=== PATIENT | female | born 1990 | race Two or more races ===

== ENCOUNTER 2019-01-20 05:00 | Inpatient (IN) | payer MEDICAID ==
[~2019-01-20] VITALS: Ht 165.1 cm; Wt 65.0 kg
[2019-01-20 06:38] LABS: BASOPHILS % 0.3 % (0.0-2.0); EOSINOPHILS % 1.5 % (0.0-5.0); HEMOGLOBIN. 12.2 g/dL (12.0-16.0); LYMPHOCYTES % 40.3 % (20.0-50.0); MEAN CORPUSCULAR HEMOGLOBIN 29.7 pg (28.0-32.0); MEAN CORPUSCULAR VOLUME 87.4 fL (81.0-99.0); MONOCYTES % 6.1 % (2.0-8.0); NEUTROPHILS % 51.8 % (40.0-76.0); PLATELET 331 x1000/uL (130-400); RED BLOOD CELL COUNT 4.12 mill/uL (4.2-5.4); RED CELL DISTRIBUTION WIDTH 13.5 % (11.6-14.6)
[2019-01-20 06:39] LABS: CHLORIDE 105 mEq/L (98-107)
[2019-01-20 06:43] LABS: HCG SCREEN NEGATIVE
[2019-01-20 06:44] LABS: ETHANOL BLOOD < 10 mg/dL
[2019-01-20 06:46] LABS: LDL CHOLESTEROL 83 mg/dL (5-100)
[2019-01-20 07:42] LABS: CLARITY URINE CLEAR (CLEAR); COLOR URINE YELLOW (YELLOW); KETONES URINE NEGATIVE (NEGATIVE); LEUKOCYTE ESTERASE URINE NEGATIVE (NEGATIVE); NITRITE URINE NEGATIVE (NEGATIVE); OCCULT BLOOD URINE 1+ (NEGATIVE); PROTEIN URINE NEGATIVE (NEGATIVE); SPECIFIC GRAVITY URINE 1.006 (1.005-1.030); UROBILINOGEN URINE 0.2 E.U./dL (0.2-1.0)
[2019-01-20 07:51] LABS: *AMPHETAMINES SCREEN URINE NEGATIVE (NEGATIVE); *BARBITURATES SCREEN URINE NEGATIVE (NEGATIVE); *BENZODIAZEPINES SCREEN URINE NEGATIVE (NEGATIVE); *COCAINE SCREEN URINE NEGATIVE (NEGATIVE); METHADONE URINE SCREEN NEGATIVE (NEGATIVE); OPIATES URINE SCREEN NEGATIVE (NEGATIVE)
[2019-01-20 07:52] LABS: CANNABINOID URINE SCREEN NEGATIVE (NEGATIVE); PHENCYCLIDINE URINE SCREEN NEGATIVE (NEGATIVE)
[2019-01-20] MEDS ORDERED: SODIUM CHLORIDE 0.9% 1,000 ML IV ONE (08:30)
[2019-01-20] MEDS ORDERED: METOCLOPRAMIDE HCL 10MG/2ML VIAL IV ONE (08:30)
[2019-01-20] MEDS ORDERED: MECLIZINE 25MG TABLET PO ONE (08:30)
[2019-01-20] MEDS ORDERED: ACETAMINOPHEN 500MG TABLET PO ONE (08:30)
[2019-01-20] MEDS ORDERED: CLONIDINE 0.1MG TABLET PO PRN (10:15)
[2019-01-20] MEDS ORDERED: SODIUM CHLORIDE 0.9% 1,000 ML IV SCH (10:15)
[2019-01-20] MEDS ORDERED: ACETAMINOPHEN 325MG TABLET PO PRN (10:15)
[2019-01-20] MEDS ORDERED: KETOROLAC 15MG/ML VIAL IV PRN (10:15)
[2019-01-20] MEDS ORDERED: IPRATROPIUM/ALBUTEROL 0.5-3(2.5)MG/3ML NEB INH PRN (10:15)
[2019-01-20] MEDS ORDERED: ONDANSETRON HCL 4MG/2ML INJ IV PRN (10:15)
[2019-01-20] MEDS ORDERED: MAGNESIUM/ALUMINUM HYDROXIDE/SIMETHICONE 30ML UDC PO PRN (10:15)
[2019-01-20] MEDS ORDERED: DOCUSATE SODIUM 100MG CAPSULE PO PRN (10:15)
[2019-01-20] MEDS ORDERED: ENOXAPARIN 40MG/0.4ML SYR SUBCUT SCH (12:00)
[2019-01-20 12:34] VITALS: BP 114/74
[2019-01-20] MEDS ORDERED: FAMOTIDINE 20MG TABLET PO SCH (21:00)
[2019-01-20] MEDS ORDERED: ZOLPIDEM TARTRATE 5MG TABLET PO PRN (21:00)
== END 2019-01-20 12:45 | disposition left against medical advice (07) | DRG 42 ==
LOC: ER 05:39 → 5WST 08:19 → EDBEDREQ 08:26 → EDBEDREQTM 08:26 → EDBEDREQSVC 08:26 → ENRESERV 09:20 → EDBEDREQTM 09:40 → EDBEDREQ 09:40
PROVIDERS: ADMIT Internal Medicine; ATTEND Internal Medicine
DX: G91.9 Hydrocephalus, unspecified (principal); Z53.21 Procedure and treatment not carried out due to patient leaving prior to being seen by health care provider
CPT/HCPCS: 36415; 71045; 80305; 80320; 83036; 83721; 84484; 84703; 93005; 96361; 96374; 99285; J2765; J7030; J8597; G0480